=== PATIENT | female | born 1965 | race Caucasian/White ===

== ENCOUNTER → 2017-12-23 | Day surgery (SDC) | payer BC, OTHER ==
--- NOTE | 2017-12-25 17:39 | PATH ---
Surgical Pathology Report Patient Name: RUPAL TERRAZAS [facility]. Rec. #: [id number] /Age/Gender: 1965 (Age: 52) / F Account: [id number] Location: [facility] Taken: 12/23/2017 Received: 12/23/2017 Reported: 12/25/2017 Physicians: Deepti Francisco, DEPARTMENT CHAIRPERSON Specimen(s) Received A: RIGHT AXILLA LYMPH NODE 1.24 CM B: RIGHT BREAST 5:00 2.05 CM Clinical History Nonpalpable lesion Mammographic findings: Highly suspicious/malignant Ultrasound findings: Highly suspicious/malignant Final Diagnosis A. AXILLA, RIGHT, LYMPH NODE, ULTRASOUND GUIDED CORE BIOPSY: CARCINOMA CONSISTENT WITH BREAST ORIGIN. TUMOR MEASURES ATLEAST 10 MM IN THIS MATERIAL. B. BREAST, RIGHT, 5:00, ULTRASOUND GUIDED CORE BIOPSY: INVASIVE DUCTAL CARCINOMA, MODERATELY DIFFERENTIATED, ATLEAST 10 MM IN THIS MATERIAL. DUCTAL CARCINOMA IN SITU (DCIS), INTERMEDIATE NUCLEAR GRADE, SOLID TYPE. MICROCALCIFICATIONS PRESENT IN CARCINOMA AND NON-NEOPLASTIC TISSUE. Results of Estrogen Receptor (ER) and Progesterone Receptor (FL) studies performed on block "B1" at [facility] are as follows: ER (clone [id number] mouse monoclonal antibody by [employer]): 99% nuclear staining with strong intensity (Positive). FL (clone16 mouse monoclonal antibody by [employer]): 99% nuclear staining with strong intensity (Positive). Results of Her2 (IHC) & Ki-67 studies performed on block "B1" at [place], [place] ([id number]) are as follows: Her2 IHC (EP3 from [employer], formerly known as [id number], using [employer] Polymer Refine detection kit): 0 (Negative). Ki-67: 20% (Intermediate proliferative index). Comment: Part A, immunohistochemical stains performed and interpreted at [facility] show the tumor is positive for AE1/3. Additional immunohistochemical stains performed at [place], [place] ([id number]) and interpreted at [facility] show the tumor is positive for RAY-3 and GDCFP-15 (focal), supportive of breast origin. The carcinoma from the right axilla (part A) and right breast (part B) shows morphologic overlap. Findings discussed with Dr. Lamb. Positive and negative controls (internal if applicable) show appropriate results. Formalin fixation and cold ischemic times are within current ASCO/CAP recommendations for ER, FL and Her2 testing. Electronically Signed Angeles Klein M.D. Gross Description A. Received in formalin labeled "right axilla," are 3 bhat-yellow, cylindrical portions of soft tissue ranging from 1.0-1.5 cm in length and averaging 0.1 cm in diameter. The specimens are submitted in toto in one cassette. B. Received in formalin labeled "right 5:00," are 7 bhat-yellow, cylindrical portions of fibroadipose tissue ranging from 0.3-1.5 cm in length and averaging 0.1 cm in diameter. The specimens are submitted in toto in 2 cassettes. Time to formalin fixation: 13 minutes Total formalin fixation time: Approximately 7 hours. 12/23/201712/23/2017
== END | disposition home or self-care (01) ==
LOC: JRADUS-SUR 10:19
PROVIDERS: ATTEND Nurse Practitioner Family
PROC: 07B53ZX Excision of Right Axillary Lymphatic, Percutaneous Approach, Diagnostic (ICD-10-PCS; principal; 2017-12-23)
DX: C50.911 Malignant neoplasm of unspecified site of right female breast (principal); C77.3 Secondary and unspecified malignant neoplasm of axilla and upper limb lymph nodes
CPT/HCPCS: 19083; 19084; 38505; 77065-TC-50; 87899; 88305-TC; 88307-TC; 88342-TC; A4648